=== PATIENT | female | born 1940 | race Caucasian/White ===

== ENCOUNTER 2016-08-28 12:44 | Observation (INO) ==
--- NOTE | 2016-08-28 12:51 | Emergency Department Note ---
Disposition Clinical Impression: Pneumonia, Hemoptysis Disposition: Admitted As Inpatient Condition: Good Referrals: Sonu Ordaz MD [Primary Care Provider] - Forms: ED Satisfaction Letter Time of Disposition: 14:46 (dandre obsv) URI/Sore Throat HPI - General Chief Complaint: ED Upper Respiratory Infection Stated Complaint: coughing spitting up a lot of blood and clots Time Seen by Provider: 08/28/16 12:55 Source: patient Mode of arrival: ambulatory Limitations: no limitations Nursing Notes Reviewed: Yes Vital Signs Reviewed: Yes - History of Present Illness HPI Narrative: 76-year-old female 3 day history of coughing up blood patient states it started about 3 nights ago woke up but she was just coughed up some blood she thought it would go away she has continue to watch it for the last 2 days continues to have all amount of hemoptysis the first night was about a cup since then has been about a half a cup she denies fever chills she states she does not feel well she denies any blurred vision double was mostly she denies diarrhea melena hematochezia or hematemesis numbness tingling weakness any rashes or lesions patient states though she has been coughing very hard and harsh she thought maybe pneumonia or bronchitis was her diagnosis came here to the ER for evaluation Pt Subjective Complaint: fever, cough, nasal congestion, other (hemoptysis) Onset (ago): day(s) (3) Duration: constant Severity: moderate Improves with: nothing Worsens with: nothing If sputum, description: bloody Associated symptoms: Reports: nasal congestion, cough, shortness of breath. Denies: fever, chills, voice changes, myalgias, diaphoresis, headache, rhinorrhea, sore throat, stiff neck, chest pain, abdominal pain, nausea, vomiting, diarrhea, dysuria, rash, ear pain Treatments prior to arrival: none - Related Data Home Medications Medication Instructions Recorded Confirmed Cetirizine HCl [Zyrtec] 10 mg PO DAILY 08/22/15 08/28/16 Ipratropium [place] 15 ml NS BID 08/22/15 08/28/16 Levothyroxine [Synthroid] 150 mcg PO DAILY 08/22/15 08/28/16 Lubiprostone [Amitiza] 24 mcg PO BID 08/22/15 08/28/16 Montelukast [Singulair] 10 mg PO DAILY 08/22/15 08/28/16 Simvastatin [Zocor] 40 mg PO HS 08/22/15 08/28/16 Topiramate [Topamax] 100 mg BID 08/22/15 08/28/16 Triamterene/HCTZ 37.5/25mg 1 each PO DAILY 08/22/15 08/28/16 [Dyazide] Zolpidem [Ambien] 10 mg PO HS 08/22/15 08/28/16 Previous Rx's Medication Instructions Recorded GuaiFENesin/Dextromethorphan 1 each PO BID 7 Days 05/29/16 [Mucinex DM] Benzonatate [Tessalon] 200 mg PO TID PRN #20 capsule 07/15/16 Allergies Allergy/AdvReac Type Severity Reaction Status Date / Time No Known Allergies Allergy Verified 08/28/16 12:46 All systems ED: reviewed and negative except as stated. Constitutional: Denies: fever, chills, weakness Eyes: Denies: vision change ENT ED: Denies: ear pain, throat pain Cardiovascular: Denies: chest pain, palpitations, dyspnea on exertion Respiratory: Reports: cough, wheezes, hemoptysis, sputum production Gastrointestinal: Denies: abdominal pain, nausea, vomiting Genitourinary: Denies: urgency, dysuria, frequency Musculoskeletal: Denies: back pain, neck pain Integumentary: Denies: rash Neurological: Reports: weakness. Denies: headache Psychiatric: Denies: anxiety Endocrine: Denies: fatigue Hematological/Lymphatic: Denies: easy bleeding Allergic/Immunologic: Denies: facial swelling URI PMH - Past Medical History Medical history: Reports: non-contributory Surgical history: Reports: appendectomy, hysterectomy, knee replacement, orthopedic, other, other Psychiatric history: Reports: depression - Social History Smoking Status: Never smoker Alcohol use: Reports: none Drug use: Reports: none Physical Exam - General Limitations: no limitations General appearance: alert, in no apparent distress, cachectic - Head Head exam: atraumatic, normocephalic, normal inspection - Eye Eye exam: Present: normal appearance, PERRL, EOMI - ENT ENT exam: normal exam, normal oropharynx, mucous membranes moist, TM's normal bilaterally, normal external ear exam - Neck Neck exam: Present: normal inspection, full ROM, trachea midline - Chest Chest inspection: Present: normal inspection, symmetric chest wall rise - Respiratory Respiratory exam: Present: normal lung sounds bilaterally, other (gross bloody sputum at cough) - Cardiovascular Cardiovascular exam: Present: regular rate, normal rhythm, normal heart sounds - Abdominal Exam Abdominal exam: Present: soft, Non-Tender, normal bowel sounds - Expanded Upper Extremity Exam Shoulder exam: Present: normal inspection, full ROM Arm exam: Present: normal inspection, full ROM Elbow exam: Present: normal inspection, full ROM Forearm/Wrist exam: Present: normal inspection, full ROM Hand exam: Present: normal inspection, full ROM Vascular exam: Normal: capillary refill, radial pulse - Expanded Lower Extremity Exam Hip/Pelvis exam: Present: normal inspection, full ROM Upper leg exam: Present: normal inspection, full ROM Knee exam: Present: normal inspection, full ROM Lower leg exam: Present: normal inspection, full ROM Ankle exam: Present: normal inspection, full ROM Foot/toe exam: Present: normal inspection, full ROM Neurovascular/Tendon exam: Present: normal capillary refill, normal fine/light touch. Absent: motor deficit, sensory deficit, tendon deficit Gait: observed and normal - Back Exam Back exam: Present: normal inspection, full ROM. Absent: muscle spasm - Neurological Exam Neurological exam: Present: alert, oriented X3, CN II-XII intact - Psychiatric Psychiatric exam: Present: normal affect, normal mood - Skin Skin exam: Present: warm, dry, intact, normal color Course Course Narrative: Patient was seen and examined patient did cough up a little bit of blood at the bedside it was about the size of the bone and it was maroon in color as result I spoke with Dr. Jang about the potential admission and Vital Signs Temperature 97.9 F 08/28/16 12:49 Pulse Rate 87 08/28/16 12:49 Respiratory Rate 16 08/28/16 12:49 Blood Pressure 163/88 08/28/16 12:49 O2 Sat by Pulse Oximetry 100 08/28/16 12:49 Temperature 97.9 F 08/28/16 14:29 Pulse Rate 79 08/28/16 14:29 Respiratory Rate 16 08/28/16 14:29 Blood Pressure 150/77 08/28/16 14:29 O2 Sat by Pulse Oximetry 98 08/28/16 14:29 Oxygen Delivery Oxygen Delivery Room Air Upper Respiratory Infection - MDM Narrative Medical decision making narrative: Concern still about lung cancer or AV malformation which could be a confusing factor to this - Differential Diagnosis Differential Diagnosis: Likely: upper respiratory infection, bronchitis, pharyngitis, pneumonia - Medical Records Medical records reviewed: Yes I reviewed the patient's medical records. - Lab Data Lab results reviewed: Yes I reviewed the patient's lab results. Result diagrams: 08/28/16 12:55 08/28/16 12:55 Lab Results 08/28/16 08/28/16 08/28/16 Range/Units 12:55 12:55 12:55 WBC 10.2 (4.3-11.1) K/mcL RBC 4.69 (3.82-4.97) M/mcL Hgb 11.6 (11.5-15.4) g/dL Hct 36.9 (35.3-44.9) % MCV 78.7 L (83.0-100.0) fL MCH 24.7 L (28.0-33.3) pg MCHC 31.4 L (31.6-35.5) g/dL RDW 15.9 H (11.5-14.5) % Plt Count 308 (140-400) K/mcL MPV 8.4 L (9.4-12.4) fL Immature Gran % 0.4 (0-4) % Seg Neutrophils % 72.0 % Lymphocytes % 17.5 % Monocytes % 6.1 % Eosinophils % 3.3 % Basophils % 0.7 % Neutrophils # 7.4 (1.6-8.9) K/mcL Lymphocytes # 1.8 (0.6-4.6) K/mcL Monocytes # 0.6 (0.0-1.3) K/mcL Eosinophils # 0.3 (0.0-0.6) K/mcL Basophils # 0.1 (0.0-0.2) K/mcL PT 12.3 H (9.4-12.1) Seconds INR 1.1 APTT 36.2 H (26.0-36.0) Seconds Sodium 132 L (136-145) mEq/L Potassium 3.7 (3.5-4.5) mEq/L Chloride 99 (98-109) mEq/L Carbon Dioxide 23 (19-29) mEq/L BUN 13 (7-20) mg/dL Creatinine 0.76 (0.57-1.11) mg/dL Est GFR ( Amer) > 60 (> 60) Est GFR (Non-Af Amer) > 60 (> 60) BUN/Creatinine Ratio 17 (6-26) Glucose 93 (70-99) mg/dL Calculated Osmolality 274 L (280-300) Calcium 9.0 (8.6-10.8) mg/dL - Radiology Data Radiology results reviewed: Yes I reviewed the patient's radiology results. ITS Impressions Chest CT 08/28/16 12:49 IMPRESSION: Bronchiectasis as above with patchy airspace disease in the middle lobe, lingula and both lower lobes. There is confluent disease in the middle lobe. Airspace disease may represent pneumonia, atelectasis or hemorrhage in light of the history of hemoptysis. D/ / Jc Lu MD / Jc Lu MD Interpreting Provider: Jc Lu MD Critical Care Time Critical Care Time: No
[2016-08-28 13:09] LABS: Basophils # 0.1 K/mcL (0.0-0.2); Basophils % 0.7 %; Eosinophils # 0.3 K/mcL (0.0-0.6); Eosinophils % 3.3 %; Hematocrit 36.9 % (35.3-44.9); Hemoglobin 11.6 g/dL (11.5-15.4); Immature Granulocytes % 0.4 % (0-4); Lymphocytes # 1.8 K/mcL (0.6-4.6); Lymphocytes % 17.5 %; Mean Corpuscular HGB Conc 31.4 g/dL (31.6-35.5); Mean Corpuscular Hemoglobin 24.7 pg (28.0-33.3); Mean Corpuscular Volume 78.7 fL (83.0-100.0); Mean Platelet Volume 8.4 fL (9.4-12.4); Monocytes # 0.6 K/mcL (0.0-1.3); Monocytes % 6.1 %; Neutrophils # 7.4 K/mcL (1.6-8.9); Platelet Count 308 K/mcL (140-400); Red Blood Count 4.69 M/mcL (3.82-4.97); Red Cell Distribution Width 15.9 % (11.5-14.5)
[2016-08-28 13:20] LABS: INR 1.1; Prothrombin Time 12.3 Seconds (9.4-12.1)
[2016-08-28 13:23] LABS: Activated Partial Thrombo Time 36.2 Seconds (26.0-36.0)
[2016-08-28 13:30] LABS: BUN/Creatinine Ratio 17 (6-26); Blood Urea Nitrogen 13 mg/dL (7-20); Carbon Dioxide 23 mEq/L (19-29); Chloride 99 mEq/L (98-109); Glucose 93 mg/dL (70-99); Osmolality,Calculated 274 (280-300); Potassium 3.7 mEq/L (3.5-4.5); Sodium 132 mEq/L (136-145); eGFR For African Americans > 60 (> 60); eGFR For Non-African Americans > 60 (> 60)
[2016-08-28] MEDS ORDERED: Azithromycin 500 MG in D5% in Water 250 ML IVPB ONE (14:31)
[2016-08-28] MEDS ORDERED: CefTRIAXone 1,000 MG in D5% in Water (Mini-Bag+) 100 ML IVPB ONE (14:31)
[2016-08-28] MEDS ORDERED: 0.9 % Sodium Chloride 1,000 ML IVC SCH (14:45)
[2016-08-28] MEDS ORDERED: *HR* OxyCODONE/APAP 7.5/325 TABLET PO ONE (16:13)
[2016-08-28] MEDS ORDERED: Naloxone 0.4 MG/ML INJ IVP PRN (18:34)
[2016-08-28] MEDS: GuaiFENesin/Dextromethorphan TABLET PO SCH (21:58)
[2016-08-28] MEDS: (Lubiprostone [Amitiza] 24 MCG) PO SCH (21:58)
[2016-08-28] MEDS: Topiramate 100 MG TABLET PO SCH (21:58)
[2016-08-28] MEDS: 0.9 % Sodium Chloride 1,000 ML IVC SCH (22:00)
[2016-08-28] MEDS: Benzonatate 100 MG CAPSULE PO PRN (22:12)
[2016-08-29] MEDS: *HR* HYDROcodone/Acet 5/325 mg TABLET PO PRN ×2 (01:10→21:00)
[2016-08-29 05:21] LABS: Basophils % 0.4 %; Eosinophils # 0.3 K/mcL (0.0-0.6); Eosinophils % 2.6 %; Hematocrit 31.3 % (35.3-44.9); Hemoglobin 9.9 g/dL (11.5-15.4); Immature Granulocytes % 0.3 % (0-4); Lymphocytes # 1.3 K/mcL (0.6-4.6); Lymphocytes % 11.8 %; Mean Corpuscular HGB Conc 31.6 g/dL (31.6-35.5); Mean Corpuscular Hemoglobin 24.4 pg (28.0-33.3); Mean Corpuscular Volume 77.1 fL (83.0-100.0); Mean Platelet Volume 8.9 fL (9.4-12.4); Monocytes # 0.7 K/mcL (0.0-1.3); Monocytes % 6.3 %; Neutrophils # 8.8 K/mcL (1.6-8.9); Platelet Count 258 K/mcL (140-400); Red Blood Count 4.06 M/mcL (3.82-4.97); Red Cell Distribution Width 15.8 % (11.5-14.5); Segmented Neutrophils % 78.6 %
[2016-08-29 05:34] LABS: INR 1.2; Prothrombin Time 12.8 Seconds (9.4-12.1)
[2016-08-29 05:37] LABS: Activated Partial Thrombo Time 34.5 Seconds (26.0-36.0)
[2016-08-29 05:48] LABS: BUN/Creatinine Ratio 17 (6-26); Blood Urea Nitrogen 11 mg/dL (7-20); Calcium 8.1 mg/dL (8.6-10.8); Carbon Dioxide 21 mEq/L (19-29); Chloride 103 mEq/L (98-109); Glucose 111 mg/dL (70-99); Osmolality,Calculated 278 (280-300); Potassium 3.2 mEq/L (3.5-4.5); Sodium 134 mEq/L (136-145); eGFR For African Americans > 60 (> 60); eGFR For Non-African Americans > 60 (> 60)
[2016-08-29] MEDS: 0.9 % Sodium Chloride 1,000 ML IVC SCH ×2 (06:31→21:06)
[2016-08-29] MEDS ORDERED: Loratadine 10 MG TABLET PO SCH (09:00)
--- NOTE | 2016-08-29 09:13 | Internal Med History&Physical ---
Date of Encounter: 08/29/16 Time of Encounter: 08:40 Assessment and Plan (1) Hemoptysis Current visit: Yes Status: Acute Suspect due to underlying bronchiectasis with superimposed infection. She was started on IV antibiotics. (2) Microcytic anemia Current visit: Yes Status: Acute We will order anemia testing in a.m. (3) Hypokalemia Current visit: Yes Status: Acute We will give supplemental potassium and monitor labs. (4) Hypothyroidism Current visit: No Status: Chronic TSH was normal at 4.819 on 04/19/2016. Continue present dose Synthroid Qualifiers: Hypothyroidism type: unspecified Qualified Code(s): E03.9 - Hypothyroidism , unspecified Internal Medicine - H&P: HPI Chief complaint: Hemoptysis Admitted From: Home Plans for Post Hospital Care: Home History of present illness: Ms. Sparks is a 76 year old female who came to emergency room at the direction of her PCP office when she reported she had hemoptysis onset evening of August 26. She states she coughed up significant amount of bright red blood. She contacted her PCP office on August 28 and was directed to go to emergency room. She was evaluated with chest CT which showed bronchiectasis diffusely, most pronounced in middle and lower lung kaye bilaterally. There was patchy airspace disease in the same distribution. She was admitted to [facility] floor for ongoing care needs. Her respiratory history is significant for being a lifelong nonsmoker. She states she has had "bronchitis" for approximately 6 weeks. She states she has received 2 courses of antibiotics in 2017 for lung infection and had brief improvement during and after treatments. 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 She had bronchoscopy approximately 10 years ago at [facility] and states she follows at [facility] pulmonology approximately every 6 months for diagnosis of emphysema. Past Med Surg Social Fam HX - Past Medical History Medical history: arthritis, COPD, hypertension, thyroid disease, other Psychiatric history: depression - Past Surgical History Surgical History: appendectomy, cataract, hysterectomy, knee replacement, orthopedic, other, other - Social History Smoking Status: Never smoker Smokeless Tobacco Status: No Alcohol use: none Drug use: none - Family History Father Living Status: Age at : 64 Hx Family Cardiac Disorders: Yes (hypertension/hyperlipidemia) Internal Medicine - H&P: Meds Cetirizine HCl [Zyrtec] 10 mg PO DAILY 08/22/15 [History] Ipratropium [place] 15 ml NS BID 08/22/15 [History] Levothyroxine [Synthroid] 150 mcg PO DAILY 08/22/15 [History] Lubiprostone [Amitiza] 24 mcg PO BID 08/22/15 [History] Montelukast [Singulair] 10 mg PO DAILY 08/22/15 [History] Simvastatin [Zocor] 40 mg PO HS 08/22/15 [History] Topiramate [Topamax] 100 mg BID 08/22/15 [History] Triamterene/HCTZ 37.5/25mg [Dyazide] 1 each PO DAILY 08/22/15 [History] Zolpidem [Ambien] 10 mg PO HS 08/22/15 [History] GuaiFENesin/Dextromethorphan [Mucinex DM] 1 each PO BID 7 Days 05/29/16 [Rx] Benzonatate [Tessalon] 200 mg PO TID PRN #20 capsule 07/15/16 [Rx] Lidocaine/Menthol [Lidall 4%-1% Patch] 1 each TP QMWFSU 08/28/16 [History] Oxycodone HCl/Acetaminophen [Percocet 5-325 mg Tablet] 1 each PO Q6HR PRN [History] Allergies No Known Allergies Allergy (Verified 08/28/16 12:46) All Systems PM: A 10-system review of systems was performed and is negative for pertinent findings except as documented above in the HPI. Review of systems: Gen.: She states her weight has been stable past few months. Cardiovascular: She has history of edema but denies heart failure. She denies hypertension MS DVT or pulmonary embolus. Respiratory: As per history of present illness. GI: She has constipation but denies disorders of her liver gallbladder or exocrine pancreas. She had colonoscopy March 2016 which she reports was negative : She denies hematuria dysuria or kidney stones Neurologic: She claims she had a stroke in 2002 with no permanent neurologic sequelae. She denies seizures Endocrine: She has hypothyroidism and hyperlipidemia Hematology/oncology: She has history of anemia denies other blood disorders or internal malignancies Psychiatric: She has depression and minimal anxiety. She denies other mental health issues Musculoskeletal: She has DJD, fibromyalgia, osteoporosis, scoliosis, and has had right shoulder, right knee, and bilateral carpal tunnel repair surgeries. - Constitutional Vitals: Temp Pulse Resp BP Pulse Ox 98.5 F 83 16 121/70 96 08/29/16 07:22 08/29/16 07:22 08/29/16 07:22 08/29/16 07:22 08/29/16 07:22 Exam: Gen.: She is well-developed lean female who appears in minimal distress at present time HEENT: Head is atraumatic and normocephalic. Eyes: EOMI. There is no scleral icterus. Mouth: Mucosa is moist. Neck: Supple and nontender. There is no thyromegaly or adenopathy noted. Heart: Regular without murmurs gallops or ectopics. Lungs: She has no expiratory wheezing or inspiratory crackles. She has mild egophony in the left posterior lateral mid lung field. Abdomen: Soft and nontender. No masses or guarding are noted. Extremities: She has significant DJD changes of her hands and feet. Dorsalis pedis and posttibial pulses are trace to 1+ palpable bilaterally. Her feet are warm to touch. Neurologic: Mental status: She is talkative and a good historian. Cranial nerves: Smile is symmetric. Forehead wrinkles bilaterally. Tongue protrudes midline. EOMI. Motor: There is no pronator drift. Cerebellar: Finger to nose is intact bilaterally. Skin: Warm and dry Internal Med - H&P Results - Labs CBC & Chem 7: 08/29/16 04:55 08/29/16 04:55 Labs: Short CBC 08/29/16 Range/Units 04:55 WBC 11.2 H (4.3-11.1) K/mcL Hgb 9.9 L D (11.5-15.4) g/dL Hct 31.3 L (35.3-44.9) % Plt Count 258 (140-400) K/mcL Neutrophils # 8.8 (1.6-8.9) K/mcL BMP 08/29/16 04:55 Sodium 134 L Potassium 3.2 L Chloride 103 Carbon Dioxide 21 BUN 11 Creatinine 0.63 Glucose 111 H Calcium 8.1 L
[2016-08-29] MEDS: CefTRIAXone 1,000 MG in D5% in Water (Mini-Bag+) 100 ML IVPB SCH (10:12)
[2016-08-29] MEDS: Topiramate 100 MG TABLET PO SCH ×2 (10:17→20:56)
[2016-08-29] MEDS: (Lubiprostone [Amitiza] 24 MCG) PO SCH ×2 (10:17→21:06)
[2016-08-29] MEDS: GuaiFENesin/Dextromethorphan TABLET PO SCH (10:17)
[2016-08-29] MEDS: Azithromycin 500 MG in D5% in Water 250 ML IVPB SCH (11:49)
[2016-08-29] MEDS: Lactobacillus 1 EACH CAP.SPRINK PO SCH (20:54)
[2016-08-29] MEDS: Loratadine 10 MG TABLET PO SCH (20:56)
[2016-08-29] MEDS: Benzonatate 100 MG CAPSULE PO PRN (21:00)
[2016-08-30 06:55] LABS: Basophils # 0.1 K/mcL (0.0-0.2); Basophils % 0.8 %; Eosinophils # 0.4 K/mcL (0.0-0.6); Eosinophils % 5.1 %; Hematocrit 32.7 % (35.3-44.9); Hemoglobin 10.2 g/dL (11.5-15.4); Immature Granulocytes % 0.4 % (0-4); Lymphocytes # 1.7 K/mcL (0.6-4.6); Lymphocytes % 22.2 %; Mean Corpuscular HGB Conc 31.2 g/dL (31.6-35.5); Mean Corpuscular Hemoglobin 24.3 pg (28.0-33.3); Mean Platelet Volume 8.8 fL (9.4-12.4); Monocytes # 0.6 K/mcL (0.0-1.3); Monocytes % 7.9 %; Neutrophils # 4.9 K/mcL (1.6-8.9); Platelet Count 273 K/mcL (140-400); Red Blood Count 4.19 M/mcL (3.82-4.97); Red Cell Distribution Width 15.9 % (11.5-14.5); Segmented Neutrophils % 63.6 %
[2016-08-30 07:09] LABS: BUN/Creatinine Ratio 14 (6-26); Blood Urea Nitrogen 8 mg/dL (7-20); Calcium 8.2 mg/dL (8.6-10.8); Carbon Dioxide 20 mEq/L (19-29); Chloride 107 mEq/L (98-109); Glucose 98 mg/dL (70-99); Magnesium 1.9 mg/dL (1.6-2.6); Osmolality,Calculated 282 (280-300); Potassium 3.2 mEq/L (3.5-4.5); Sodium 137 mEq/L (136-145); eGFR For African Americans > 60 (> 60); eGFR For Non-African Americans > 60 (> 60)
[2016-08-30] MEDS: CefTRIAXone 1,000 MG in D5% in Water (Mini-Bag+) 100 ML IVPB SCH (08:56)
[2016-08-30] MEDS: Lactobacillus 1 EACH CAP.SPRINK PO SCH ×2 (09:00→20:08)
[2016-08-30] MEDS: (Lubiprostone [Amitiza] 24 MCG) PO SCH ×2 (09:01→20:11)
[2016-08-30] MEDS: 0.9 % Sodium Chloride 1,000 ML IVC SCH (09:01)
[2016-08-30] MEDS: Azithromycin 500 MG in D5% in Water 250 ML IVPB SCH (10:40)
--- NOTE | 2016-08-30 10:42 | Internal Med Progress Note ---
Date of Encounter: 08/30/16 Time of Encounter: 10:30 - Assessment and plan (1) Hemoptysis Current Visit: Yes Status: Acute Assessment and plan: August 30. Continue IV antibiotics and lactobacillus. Anticipate discharge home tomorrow on oral antibiotics to complete a 10 day course (2) Microcytic anemia Current Visit: Yes Status: Acute Assessment and plan: August 30. Anemia testing is pending. (3) Hypokalemia Current Visit: Yes Status: Acute Assessment and plan: August 30. Will increase supplemental potassium and recheck labs in a.m. (4) Hypothyroidism Current Visit: No Status: Chronic Assessment and plan: August 30. TSH was normal at 4.819 on 04/19/2016. Continue present dose Synthroid Qualifiers: Hypothyroidism type: unspecified Qualified Code(s): E03.9 - Hypothyroidism , unspecified - Subjective Interval history: August 30. She has no new complaints. She states she feels slightly improved overall but still too weak to go home. - Constitutional Vitals: Temp Pulse Resp BP Pulse Ox 98.8 F 76 16 119/69 97 08/30/16 07:35 08/30/16 07:35 08/30/16 07:35 08/30/16 07:35 08/30/16 07:35 Exam: She is resting comfortably in bed. She did not cough during examination. Her affect is bright and cheerful. I reviewed her medications and lab results. Internal Medicine: Result - Labs CBC & Chem 7: 08/30/16 06:15 08/30/16 06:15 Labs: Short CBC 08/30/16 Range/Units 06:15 WBC 7.7 (4.3-11.1) K/mcL Hgb 10.2 L (11.5-15.4) g/dL Hct 32.7 L (35.3-44.9) % Plt Count 273 (140-400) K/mcL Neutrophils # 4.9 (1.6-8.9) K/mcL BMP 08/30/16 06:15 Sodium 137 Potassium 3.2 L Chloride 107 Carbon Dioxide 20 BUN 8 Creatinine 0.58 Glucose 98 Calcium 8.2 L - ABG Interpretation ABG results: PT/INR, D-dimer PT 12.8 Seconds (9.4-12.1) H 08/29/16 04:55 Consult Discharge Plan - Plan Referrals: Sonu Ordaz MD [Primary Care Provider] - 1 week
[2016-08-30] MEDS ORDERED: MOM Conc 10 ML UD.LIQ PO ONE (10:47)
[2016-08-30 17:26] LABS: % Iron Saturation 7 % (15-50); Iron 28 mcg/dL (50-170); Transferrin 273 mg/dL (180-382)
[2016-08-30 17:46] LABS: Ferritin 20 ng/ml (5-204)
[2016-08-30 18:01] LABS: Folate 16.6 ng/mL (7.0-31.4)
[2016-08-30] MEDS: Loratadine 10 MG TABLET PO SCH (20:08)
[2016-08-30] MEDS: Topiramate 100 MG TABLET PO SCH (20:08)
[2016-08-30] MEDS: *HR* HYDROcodone/Acet 5/325 mg TABLET PO PRN (21:49)
[2016-08-31 04:32] LABS: Basophils # 0.1 K/mcL (0.0-0.2); Basophils % 0.8 %; Eosinophils # 0.4 K/mcL (0.0-0.6); Eosinophils % 5.4 %; Hematocrit 33.2 % (35.3-44.9); Hemoglobin 10.4 g/dL (11.5-15.4); Immature Granulocytes % 0.3 % (0-4); Lymphocytes # 1.9 K/mcL (0.6-4.6); Lymphocytes % 24.5 %; Mean Corpuscular HGB Conc 31.3 g/dL (31.6-35.5); Mean Corpuscular Hemoglobin 24.5 pg (28.0-33.3); Mean Corpuscular Volume 78.1 fL (83.0-100.0); Mean Platelet Volume 8.4 fL (9.4-12.4); Monocytes # 0.6 K/mcL (0.0-1.3); Monocytes % 8.1 %; Neutrophils # 4.7 K/mcL (1.6-8.9); Platelet Count 261 K/mcL (140-400); Red Blood Count 4.25 M/mcL (3.82-4.97); Red Cell Distribution Width 16.1 % (11.5-14.5); Segmented Neutrophils % 60.9 %
[2016-08-31 04:48] LABS: BUN/Creatinine Ratio 27 (6-26); Blood Urea Nitrogen 17 mg/dL (7-20); Calcium 8.6 mg/dL (8.6-10.8); Carbon Dioxide 19 mEq/L (19-29); Chloride 104 mEq/L (98-109); Glucose 103 mg/dL (70-99); Osmolality,Calculated 278 (280-300); Potassium 3.6 mEq/L (3.5-4.5); Sodium 133 mEq/L (136-145); eGFR For African Americans > 60 (> 60); eGFR For Non-African Americans > 60 (> 60)
[2016-08-31 08:24] VITALS: BP 122/67
[2016-08-31] MEDS: CefTRIAXone 1,000 MG in D5% in Water (Mini-Bag+) 100 ML IVPB SCH (08:42)
[2016-08-31] MEDS: Lactobacillus 1 EACH CAP.SPRINK PO SCH (08:48)
[2016-08-31] MEDS: (Lubiprostone [Amitiza] 24 MCG) PO SCH (08:50)
[2016-08-31] MEDS: Azithromycin 500 MG in D5% in Water 250 ML IVPB SCH (09:37)
--- NOTE | 2016-08-31 11:11 | Discharge Summary ---
Date of Encounter: 08/31/16 Time of Encounter: 10:55 - Discharge Diagnosis (1) Hemoptysis Priority: Primary Status: Acute (2) Bronchiectasis Priority: Secondary Status: Acute Qualifiers: Bronchiectasis type: with acute lower respiratory infection Qualified Code( s): J47.0 - Bronchiectasis with acute lower respiratory infection (3) Microcytic anemia Priority: Secondary Status: Acute (4) Hypokalemia Priority: Secondary Status: Resolved (5) Hypothyroidism Priority: Secondary Status: Chronic Qualifiers: Hypothyroidism type: unspecified Qualified Code(s): E03.9 - Hypothyroidism , unspecified - Discharge Medications Prescriptions: Cefuroxime PO [Ceftin] 500 mg PO Q12HR #14 tablet Ascorbic Acid [Vitamin C] 500 mg PO DAILY #30 tablet.er Azithromycin [Zithromax] 250 mg PO Q24H #7 tablet Ferrous Sulfate 325 mg PO DAILY #30 tablet. Lactobacillus [Culturelle] 1 each PO BID #14 cap.sprink Potassium Chloride 20 meq PO BIDWM #120 tab.er.prt Home Medications: Cetirizine HCl [Zyrtec] 10 mg PO DAILY 08/22/15 [History] Ipratropium [place] 15 ml NS BID 08/22/15 [History] Levothyroxine [Synthroid] 150 mcg PO DAILY 08/22/15 [History] Lubiprostone [Amitiza] 24 mcg PO BID 08/22/15 [History] Montelukast [Singulair] 10 mg PO DAILY 08/22/15 [History] Simvastatin [Zocor] 40 mg PO HS 08/22/15 [History] Topiramate [Topamax] 100 mg BID 08/22/15 [History] Triamterene/HCTZ 37.5/25mg [Dyazide] 1 each PO DAILY 08/22/15 [History] Zolpidem [Ambien] 10 mg PO HS 08/22/15 [History] GuaiFENesin/Dextromethorphan [Mucinex Dm] 1 each PO BID 7 Days 05/29/16 [Rx] Benzonatate [Tessalon] 200 mg PO TID PRN #20 capsule 07/15/16 [Rx] Lidocaine/Menthol [Lidall 4%-1% Patch] 1 each TP QMWFSU 08/28/16 [History] Oxycodone HCl/Acetaminophen [Percocet 5-325 mg Tablet] 1 each PO Q6HR PRN [History] Ascorbic Acid [Vitamin C] 500 mg PO DAILY #30 tablet.er 08/31/16 [Rx] Azithromycin [Zithromax] 250 mg PO Q24H #7 tablet 08/31/16 [Rx] Cefuroxime PO [Ceftin] 500 mg PO Q12HR #14 tablet 08/31/16 [Rx] Ferrous Sulfate 325 mg PO DAILY #30 tablet.dr 08/31/16 [Rx] Lactobacillus [Culturelle] 1 each PO BID #14 cap.sprink 08/31/16 [Rx] Potassium Chloride 20 meq PO BIDWM #120 tab.er.prt 08/31/16 [Rx] Allergies/Adverse Reactions: Allergies No Known Allergies Allergy (Verified 08/28/16 12:46) Date of admission: 08/28/16 16:41 Primary care physician: Sonu Ordaz MD - Patient Status Disposition: Home Health Service Condition: Good Overall status at discharge: patient is progressing back to baseline - Discharge Instructions Follow Up With: Sonu Ordaz MD [Primary Care Provider] - 1 week - Diet and Activity Activity: resume usual activities as tolerated Diet: advance to your usual diet Hospital course: Ms. Sparks is a 76 year old female who came to emergency room at the direction of her PCP office when she reported she had hemoptysis onset evening of August 26. She states she coughed up significant amount of bright red blood. She contacted her PCP office on August 28 and was directed to go to emergency room. She was evaluated with chest CT which showed bronchiectasis diffusely, most pronounced in middle and lower lung kaye bilaterally. There was patchy airspace disease in the same distribution. She was admitted to [facility] for ongoing care needs. Initial orders were written by the emergency room physician. I saw her on August 29 and performed a history and physical. She was started on IV Rocephin and Zithromax. Lactobacillus was added. She had minimal hemoptysis during her hospital stay. I told her that previous lung infections may have caused bronchiectasis and she would be more prone to getting recurrent infections from having bronchiectasis. I told her that bronchiectasis could be a source of her hemoptysis. I told her if she has significant frequency of respiratory infections, consideration for chronic suppressive antibiotic regimen could be done. She can discuss this further with her PCP Dr. Ordaz. Anemia testing was ordered and showed iron 28, transferrin saturation 7%, transferrin 273, ferritin 20, B12 384, and folate 16.6. She will be started on ferrous sulfate with vitamin C at discharge. Supplemental potassium was given for hypokalemia. On the day of discharge her potassium had normalized to 3.6. Her hemoglobin increased from 9.9 on August 29 to 10.4 on the day of discharge. She had normal WBC of 7.7 on the day of discharge with no left shift seen on the differential. She will be discharged home and follow with Dr. Ordaz within one week. Home health nursing services will be ordered. Room air oximetry will be checked prior to discharge on a 6 minute walk. - Time Spent with Patient Total time spent providing and/or coordinating discharge services: - Constitutional Vitals: Temp Pulse Resp BP Pulse Ox 97.9 F 79 16 122/67 97 08/31/16 08:23 08/31/16 08:23 08/31/16 08:23 08/31/16 08:23 08/31/16 08:23
--- NOTE | 2016-08-31 11:31 | Physician Discharge Referral ---
Home Health/Hosp Referral Info Transfer to: Home Health Attending Provider: Suhail Provider in Charge Post Discharge: PCP (Sonu Ordaz M.D.) - Diagnosis (1) Hemoptysis Priority: Primary Status: Acute (2) Bronchiectasis Priority: Secondary Status: Acute (3) Microcytic anemia Priority: Secondary Status: Acute (4) Hypokalemia Priority: Secondary Status: Resolved (5) Hypothyroidism Priority: Secondary Status: Chronic - Respiratory Orders Smoking Cessation: Smoking cessation has been advised. For more information, call the [place] [employer] Quit Line at [phone]-[phone]. - Diet/Nutrition Diet/Nutrition Orders: Regular - Activity Activity Orders: Ambulate - Services Needed Following services are medically necessary services: Nursing, Home Health Aide, Physical Therapy, Occupational Therapy - Transfer Medications Prescriptions: Cefuroxime PO [Ceftin] 500 mg PO Q12HR #14 tablet Ascorbic Acid [Vitamin C] 500 mg PO DAILY #30 tablet.er Azithromycin [Zithromax] 250 mg PO Q24H #7 tablet Ferrous Sulfate 325 mg PO DAILY #30 tablet. Lactobacillus [Culturelle] 1 each PO BID #14 cap.sprink Potassium Chloride 20 meq PO BIDWM #120 tab.er.prt Home Medications: Cetirizine HCl [Zyrtec] 10 mg PO DAILY 08/22/15 [History] Ipratropium [place] 15 ml NS BID 08/22/15 [History] Levothyroxine [Synthroid] 150 mcg PO DAILY 08/22/15 [History] Lubiprostone [Amitiza] 24 mcg PO BID 08/22/15 [History] Montelukast [Singulair] 10 mg PO DAILY 08/22/15 [History] Simvastatin [Zocor] 40 mg PO HS 08/22/15 [History] Topiramate [Topamax] 100 mg BID 08/22/15 [History] Triamterene/HCTZ 37.5/25mg [Dyazide] 1 each PO DAILY 08/22/15 [History] Zolpidem [Ambien] 10 mg PO HS 08/22/15 [History] GuaiFENesin/Dextromethorphan [Mucinex Dm] 1 each PO BID 7 Days 05/29/16 [Rx] Benzonatate [Tessalon] 200 mg PO TID PRN #20 capsule 07/15/16 [Rx] Lidocaine/Menthol [Lidall 4%-1% Patch] 1 each TP QMWFSU 08/28/16 [History] Oxycodone HCl/Acetaminophen [Percocet 5-325 mg Tablet] 1 each PO Q6HR PRN [History] Ascorbic Acid [Vitamin C] 500 mg PO DAILY #30 tablet.er 08/31/16 [Rx] Azithromycin [Zithromax] 250 mg PO Q24H #7 tablet 08/31/16 [Rx] Cefuroxime PO [Ceftin] 500 mg PO Q12HR #14 tablet 08/31/16 [Rx] Ferrous Sulfate 325 mg PO DAILY #30 tablet.dr 08/31/16 [Rx] Lactobacillus [Culturelle] 1 each PO BID #14 cap.sprink 08/31/16 [Rx] Potassium Chloride 20 meq PO BIDWM #120 tab.er.prt 08/31/16 [Rx] Allergies/Adverse Reactions: Allergies No Known Allergies Allergy (Verified 08/28/16 12:46) Certification: Further, I certify that my clinical findings support that this patient is homebound (i.e. absences from home require considerable and taxing effort and are for medical reasons or [employer] services or infrequently or short duration when for other reasons) because: Homebound Reason: Leaving home requires considerable and taxing effort due to condition (Deconditioning, DJD, bronchiectasis with hemoptysis) Attestation: My signature below is to certify that this patient is under my care and that I, or nurse practitioner, or a physician's media assistant working with me, has a face-to -face encounter with this patient.
== END 2016-08-31 18:22 | disposition home health service (06) ==
LOC: EMEROOPIK 12:44 → INPPIK 12:44
PROVIDERS: ADMIT Internal Medicine; ATTEND Internal Medicine